=== PATIENT | male | born 1960 | race Caucasian/White ===

== ENCOUNTER 2018-06-12 15:54 | Observation (INO) | payer OTHER ==
[~2018-06-12] VITALS: Ht 188 cm; Wt 90.7 kg
[2018-06-12 16:00] VITALS: BP 118/69
[2018-06-12 16:55] LABS: ABSOLUTE BASOPHILS 0.2 thou/uL (0.0-0.2); ABSOLUTE EOSINOPHILS 0.2 thou/uL (0.0-0.7); ABSOLUTE LYMPHOCYTES 3.6 thou/uL (0.8-5.3); ABSOLUTE MONOCYTES 1.2 thou/uL (0.0-1.2); ABSOLUTE NEUTROPHILS 11.2 thou/uL (1.6-8.1); BASOPHILS 0.9 %; EOSINOPHILS 1.5 %; HEMATOCRIT 42.8 % (42.0-52.0); HEMOGLOBIN 14.8 gm/dL (14.0-18.0); LYMPHOCYTES 21.9 %; MCH 33.2 pg (26.0-34.0); MCHC 34.6 g/dL (28.0-37.0); MONOCYTES 7.2 %; MPV 9.7 fl. (7.2-11.1); NUCLEATED RBCS 0 /100WBC; PLATELET COUNT* 241 thou/uL (150-400); POLYS 68.5 %; RBC 4.46 mil/uL (4.50-6.00); RDW-CV 13.3 % (10.5-14.5); WBC 16.3 thou/uL (4.0-11.0)
[2018-06-12 17:01] LABS: CALCIUM 8.8 mg/dL (8.5-10.1); CREATININE 0.9 mg/dL (0.6-1.3); POTASSIUM 3.8 mmol/L (3.5-5.1)
[2018-06-12 17:06] LABS: ALBUMIN 3.5 g/dL (3.4-5.0); APTT 28.8 Seconds (25.0-31.3); PROTIME 9.8 Seconds (9.20-11.50); TOTAL BILIRUBIN 0.3 mg/dL (<0.1-1.0); TOTAL PROTEIN 7.2 g/dL (6.4-8.2)
[2018-06-12 18:54] VITALS: BP 118/58
[2018-06-12 19:00] LABS: URINE BILIRUBIN NEGATIVE (Negative); URINE BLOOD NEGATIVE (Negative); URINE CLARITY CLEAR; URINE COLOR YELLOW; URINE GLUCOSE-RANDOM NEGATIVE (Negative); URINE KETONES NEGATIVE (Negative); URINE LEUKOCYTES NEGATIVE (Negative); URINE NITRITE NEGATIVE (Negative); URINE PROTEIN NEGATIVE (Negative); URINE SPECIFIC GRAVITY <= 1.005 (1.005-1.030); URINE UROBILINOGEN 0.2 E.U./dl (0.2-1.0)
[2018-06-12 19:17] VITALS: BP 118/58
[2018-06-13 04:19] LABS: ABSOLUTE EOSINOPHILS 0.2 thou/uL (0.0-0.7); ABSOLUTE LYMPHOCYTES 2.2 thou/uL (0.8-5.3); ABSOLUTE MONOCYTES 0.9 thou/uL (0.0-1.2); ABSOLUTE NEUTROPHILS 8.6 thou/uL (1.6-8.1); BASOPHILS 0.3 %; EOSINOPHILS 1.7 %; HEMATOCRIT 41.7 % (42.0-52.0); HEMOGLOBIN 13.9 gm/dL (14.0-18.0); LYMPHOCYTES 18.8 %; MCH 32.3 pg (26.0-34.0); MCHC 33.4 g/dL (28.0-37.0); MCV 96.8 fL (80.0-100.0); MONOCYTES 7.2 %; MPV 9.9 fl. (7.2-11.1); NUCLEATED RBCS 0 /100WBC; PLATELET COUNT* 210 thou/uL (150-400); RBC 4.31 mil/uL (4.50-6.00); RDW-CV 13.6 % (10.5-14.5)
[2018-06-13 04:30] LABS: CALCIUM 8.2 mg/dL (8.5-10.1); CREATININE 0.7 mg/dL (0.6-1.3); POTASSIUM 4.2 mmol/L (3.5-5.1)
--- NOTE | 2018-06-13 04:32 | NUR ---
PATIENT AND SPOUSE ANGRY AND AGITATED AT BEGINNING OF SHIFT REGARDING PATIENT NOT HAVING I&D OF ABCESS. PATIENT STATED THAT "I SHOULD GO HOME SINCE NOTHING IS GETTING DONE HERE" EXPLAINED TO PATIENT THE IMPORTANCE OF RECEIVING ANTIBIOTICS AND FLUIDS. PATIENT IN AGREEMENT AND PLEASANT THIS AM. NPO SINCE MIDNIGHT. VITALS STABLE. UP AD MIKO. DENIES PAIN. WILL CONTINUE TO MONITOR.
[2018-06-13 06:00] VITALS: BP 127/82
[2018-06-13 07:40] VITALS: BP 140/80
--- NOTE | 2018-06-13 08:00 | NUR ---
PAGE PLACED TO DR AWAN REGARDING PLAN OF CARE PER PATIENT REQUEST. PATIENT AND SPOUSE UPSET THAT SURGEON HAS NOT BEEN IN TO SEE PATIENT AND STATED THEY WERE TOLD IN THE ER THAT SURGERY WOULD BE THIS AM. DR AWAN IN TO ASSESS WOUND AT THIS TIME. PATIENT AND SPOUSE VERBALIZED UNDERSTANDING IN REGARDS TO PLAN OF CARE AND SURGERY THIS MORNING. DRESSING CHANGED TO LEFT BUTTOCK AND INFORMED PLANNED SURGERY TODAY.
[2018-06-13 08:45] VITALS: BP 127/82; BP 146/86
[2018-06-13 11:02] VITALS: BP 146/86
[2018-06-13] MEDS ORDERED: AUGMENTIN 875-1 EACH PO (11:04)
--- NOTE | 2018-06-13 13:54 | NUR ---
Nurse informed CM that Pt will likely dc after surgery today and may need for wound care. CM to discuss once Pt returns to the room. Nurse anticipates that Pt will dc today. CM checked Pt's insurance, [facility] accepts Pt's insurance. If Pt dc after leaves, nurse can fax DC orders, H&P, Op Report, wound care orders and facesheet to [facility] at [phone].
[2018-06-13 14:15] VITALS: BP 133/78
[2018-06-13] MEDS ORDERED: DOXYCYCLINE 10100 MG PO (14:41)
[2018-06-13] MEDS ORDERED: NORCO 5-325 TA1 EACH PO (14:42)
--- NOTE | 2018-06-13 16:11 | NUR ---
PATIENT ASKED FOR PAIN PILL PRIOR TO LEAVING, HYDROCODONE GIVEN ORDERED. IV REMOVED AND OUTER DRESSING TO LEFT BUTTOCK WOUND CHANGED. ORAL ANTIBIOTICS CLARIFIED WITH DR OCASIO PRIOR TO DISCHARGE. PATIENT AND SPOUSE VERBALIZED UNDERSTANDING IN REGARDS TO DISCHARGE, WOUND CARE AND FOLLOW UP APPOINTMENTS. PATIENT AMBULATED OFF NURSING UNIT AND DISCHARGED TO HOME.
--- NOTE | 2018-06-14 12:23 | OP ---
[address] [address] OPERATIVE REPORT Name: TUSHAR CROWLEY Room: [address] Axel Paz#: [id number] Admission: 06/12/18 Attend Phys: Kimo Castro MD Discharge: 06/13/18 Date of : 58 Report #: [id number] THIS REPORT FOR: //name// CC: Kimo Live DATE OF SERVICE: 06/13/2018 PREOPERATIVE DIAGNOSIS: Left gluteal abscess. POSTOPERATIVE DIAGNOSIS: Left gluteal abscess. OPERATIVE PROCEDURE: Incision and drainage of left gluteal abscess. ANESTHESIA: Laryngeal mask with 0.5% Marcaine infiltrated around the operative site. DESCRIPTION OF PROCEDURE: The patient was placed in candy canes, and the gluteal fold was prepped and draped in a sterile fashion. A time-out was taken. Antibiotics administered. I began by infiltrating around the indurated site with 8 mL of 0.5% Marcaine and then made a longitudinal incision of approximately 2 cm and then spread with a clamp and began evacuating clot and necrotic debris and used finger dissection to break up any loculations. I then irrigated this spot in the left gluteal fold with irrigation of saline of about 1 liter. I then packed it with 1-inch plain gauze and placed ABD and mesh panties completing the operative procedure. ESTIMATED BLOOD LOSS: 10 mL. No specimen or cultures. Sponge and instrument counts correct. The patient was extubated, returned to recovery in stable condition. <ELECTRONICALLY SIGNED> By: Mayelin Law MD 06/14/18 [id number] Law MD /nt
== END 2018-06-13 16:14 | disposition home or self-care (01) ==
LOC: M.ERS 15:54 → M.3W 18:15 → M.TBA-ER 18:15 → M.3W 18:51
PROVIDERS: Physician Assistant; ADMIT Internal Medicine
DX: L02.31 Cutaneous abscess of buttock (principal); D72.829 Elevated white blood cell count, unspecified; R65.10 Systemic inflammatory response syndrome (SIRS) of non-infectious origin without acute organ dysfunction; F17.210 Nicotine dependence, cigarettes, uncomplicated; Z72.89 Other problems related to lifestyle

== ENCOUNTER → 2018-06-15 | Outpatient (CLI) | payer OTHER ==
[~2018-06-15] MED LIST: AUGMENTIN 875-1 EACH PO; DOXYCYCLINE 10100 MG PO; NORCO 5-325 TA1 EACH PO
== END ==
LOC: M.WC 09:17
DX: T81.89XD Other complications of procedures, not elsewhere classified, subsequent encounter (principal); L02.31 Cutaneous abscess of buttock; F17.200 Nicotine dependence, unspecified, uncomplicated; Y83.8 Other surgical procedures as the cause of abnormal reaction of the patient, or of later complication, without mention of misadventure at the time of the procedure

== ENCOUNTER → 2018-06-17 | Outpatient (CLI) | payer OTHER | LOC: M.WC 02:56 | DX: T81.89XD Other complications of procedures, not elsewhere classified, subsequent encounter (principal); L02.31 Cutaneous abscess of buttock; F17.200 Nicotine dependence, unspecified, uncomplicated; Y83.8 Other surgical procedures as the cause of abnormal reaction of the patient, or of later complication, without mention of misadventure at the time of the procedure ==

== ENCOUNTER → 2018-06-19 | Outpatient (CLI) | payer OTHER | LOC: M.WC 01:46 | DX: T81.89XD Other complications of procedures, not elsewhere classified, subsequent encounter (principal); L02.31 Cutaneous abscess of buttock; L03.317 Cellulitis of buttock; F17.200 Nicotine dependence, unspecified, uncomplicated; Y83.8 Other surgical procedures as the cause of abnormal reaction of the patient, or of later complication, without mention of misadventure at the time of the procedure ==

== ENCOUNTER → 2018-06-22 | Outpatient (CLI) | payer OTHER | LOC: M.WC 00:53 | DX: T81.89XD Other complications of procedures, not elsewhere classified, subsequent encounter (principal); F17.200 Nicotine dependence, unspecified, uncomplicated; Y83.8 Other surgical procedures as the cause of abnormal reaction of the patient, or of later complication, without mention of misadventure at the time of the procedure ==

== ENCOUNTER → 2018-06-24 | Outpatient (CLI) | payer OTHER | LOC: M.WC 04:07 | DX: T81.89XD Other complications of procedures, not elsewhere classified, subsequent encounter (principal); F17.200 Nicotine dependence, unspecified, uncomplicated; Y83.8 Other surgical procedures as the cause of abnormal reaction of the patient, or of later complication, without mention of misadventure at the time of the procedure ==

== ENCOUNTER → 2018-06-26 | Outpatient (CLI) | payer OTHER | LOC: M.WC 01:20 | DX: T81.89XD Other complications of procedures, not elsewhere classified, subsequent encounter (principal); F17.200 Nicotine dependence, unspecified, uncomplicated; Y83.8 Other surgical procedures as the cause of abnormal reaction of the patient, or of later complication, without mention of misadventure at the time of the procedure ==

== ENCOUNTER → 2018-06-29 | Outpatient (CLI) | payer OTHER | LOC: M.WC 00:53 | DX: T81.89XD Other complications of procedures, not elsewhere classified, subsequent encounter (principal); L03.317 Cellulitis of buttock; L02.31 Cutaneous abscess of buttock; F17.200 Nicotine dependence, unspecified, uncomplicated; Y83.8 Other surgical procedures as the cause of abnormal reaction of the patient, or of later complication, without mention of misadventure at the time of the procedure ==

== ENCOUNTER → 2018-07-06 | Outpatient (CLI) | payer OTHER | LOC: M.WC 06:15 | DX: T81.89XD Other complications of procedures, not elsewhere classified, subsequent encounter (principal); F17.200 Nicotine dependence, unspecified, uncomplicated; Y83.8 Other surgical procedures as the cause of abnormal reaction of the patient, or of later complication, without mention of misadventure at the time of the procedure ==

== ENCOUNTER → 2018-07-13 | Outpatient (CLI) | payer OTHER | LOC: M.WC 01:57 | DX: T81.89XD Other complications of procedures, not elsewhere classified, subsequent encounter (principal); L02.31 Cutaneous abscess of buttock; F17.200 Nicotine dependence, unspecified, uncomplicated; Y83.8 Other surgical procedures as the cause of abnormal reaction of the patient, or of later complication, without mention of misadventure at the time of the procedure ==

== ENCOUNTER → 2018-07-27 | Outpatient (CLI) | payer OTHER | LOC: M.WC 01:25 | DX: T81.89XD Other complications of procedures, not elsewhere classified, subsequent encounter (principal); L02.31 Cutaneous abscess of buttock; F17.200 Nicotine dependence, unspecified, uncomplicated; Y83.8 Other surgical procedures as the cause of abnormal reaction of the patient, or of later complication, without mention of misadventure at the time of the procedure ==

== ENCOUNTER → 2018-08-03 | Outpatient (CLI) | payer OTHER | LOC: M.WC 01:40 | DX: T81.89XD Other complications of procedures, not elsewhere classified, subsequent encounter (principal); L02.31 Cutaneous abscess of buttock; F17.200 Nicotine dependence, unspecified, uncomplicated; Y83.8 Other surgical procedures as the cause of abnormal reaction of the patient, or of later complication, without mention of misadventure at the time of the procedure ==

== ENCOUNTER → 2018-08-10 | Outpatient (CLI) | payer OTHER | LOC: M.WC 01:06 | DX: T81.89XD Other complications of procedures, not elsewhere classified, subsequent encounter (principal); L03.317 Cellulitis of buttock; F17.200 Nicotine dependence, unspecified, uncomplicated; Y83.8 Other surgical procedures as the cause of abnormal reaction of the patient, or of later complication, without mention of misadventure at the time of the procedure ==

== ENCOUNTER → 2018-08-17 | Outpatient (CLI) | payer OTHER | LOC: M.WC 00:49 | DX: T81.89XD Other complications of procedures, not elsewhere classified, subsequent encounter (principal); F17.200 Nicotine dependence, unspecified, uncomplicated; Y83.8 Other surgical procedures as the cause of abnormal reaction of the patient, or of later complication, without mention of misadventure at the time of the procedure ==

== ENCOUNTER → 2018-08-31 | Outpatient (CLI) | payer OTHER | LOC: M.WC 01:58 | DX: T81.89XD Other complications of procedures, not elsewhere classified, subsequent encounter (principal); F17.200 Nicotine dependence, unspecified, uncomplicated; Y83.8 Other surgical procedures as the cause of abnormal reaction of the patient, or of later complication, without mention of misadventure at the time of the procedure ==